=== PATIENT | male | born 1960 | race American Indian/Alaskan Native ===

== ENCOUNTER 2018-11-19 22:59 | Emergency (ER) | payer MEDICARE ==
[2018-11-20 00:25] LABS: Basophils # (Auto) 0.1 K/mm3 (0.0-0.1); Basophils % (Auto) 0.9 % (0.0-1.8); Eosinophils # (Auto) 0.1 K/mm3 (0.0-0.4); Eosinophils % (Auto) 1.5 % (0.0-4.3); Hematocrit 34.8 % (35.5-45.6); Hemoglobin 11.6 gm/dl (11.8-15.2); Lymphocytes # (Auto) 1.4 K/mm3 (1.2-5.4); Lymphocytes % (Auto) 23.2 % (13.4-35.0); Mean Corpuscular HGB Conc 33 % (32-34); Mean Corpuscular Volume 79 fl (84-94); Monocytes # (Auto) 0.5 K/mm3 (0.0-0.8); Monocytes % (Auto) 8.9 % (0.0-7.3); Platelet Count 219 K/mm3 (140-440); Red Blood Count 4.41 M/mm3 (3.65-5.03); Red Cell Distribution Width 15.9 % (13.2-15.2)
[2018-11-20 00:50] LABS: Alanine Aminotransferase 14 units/L (7-56); Albumin 3.8 g/dL (3.9-5); BUN/Creatinine Ratio 7; Blood Urea Nitrogen 10 mg/dL (9-20); Calcium 9.3 mg/dL (8.4-10.2); Hemolysis Index 4
[2018-11-20 01:03] LABS: Bilirubin,Urine NEG (Negative); Blood,Urine NEG (Negative); Color,Urine Amber (Yellow); Hyaline Casts,Urine 2 /LPF; Mucus,Urine 2+ /HPF
[2018-11-20 01:07] LABS: Protein,Urine >500 mg/dL (Negative)
[2018-11-20] MEDS ORDERED: ZOFRAN IV ONE (04:11)
[2018-11-20] MEDS ORDERED: NACL 0.9% 1000 ML 2,000 ML IV ONE (04:11)
[2018-11-20] MEDS ORDERED: MORPHINE IV ONE (04:11)
[2018-11-20] MEDS ORDERED: K-DUR PO ONE (04:11)
--- NOTE | 2018-11-20 04:12 | Emergency Department Report ---
ED General Adult HPI - General Chief complaint: Abdominal Pain Stated complaint: ABD PAIN Time Seen by Provider: 11/20/18 03:18 Source: patient, EMS (ems notes not available at time of chart dictation), RN notes reviewed Mode of arrival: Ambulatory Limitations: No Limitations - History of Present Illness Initial comments: This is a 58-year-old gentleman. The patient is not known to this provider previously. He reports a history of hypertension, diabetes, HIV, and asthma. He reportedly moved here from [place] recently. He presents to the ER today with a complaint of abdominal pain. The abdominal pain is present for one week. The abdominal pain is epigastric and radiates to the suprapubic region. It worsens when he eats and/or drinks. He also indicates that he intermittently gets nausea and vomiting when he eats or drinks. He denies headache, neck pain, chest pain and shortness of breath. He denies urinary symptoms. He denies testicular pain. He indicates no change in symptoms when he takes a hot bath or hot shower. The patient does not know all the medicines that he takes. He states his only surgical history is for hernia. It is documented that he had a gastric bypass. However, he does not tell me this. -: days(s) Location: abdomen Radiation: abdomen Quality: aching Consistency: intermittent Improves with: other Worsens with: other - Related Data Home Medications Medication Instructions Recorded Confirmed Last Taken Carvedilol Phosphate [Carvedilol 20 mg PO DAILY 11/20/18 11/20/18 Unknown ER] Entresto 24 - 26 mg DAILY 11/20/18 Unknown HumaLOG Mix 75-25 Kwikpen BID 11/20/18 Unknown hydrALAZINE [Apresoline TAB] Q3D 11/20/18 Unknown Previous Rx's Medication Instructions Recorded Last Taken Type Acetaminophen [Non-Aspirin Extra 500 mg PO Q6HR PRN #30 tablet 11/20/18 Unknown Rx Strength] Famotidine [Pepcid] 20 mg PO BID #60 tablet 11/20/18 Unknown Rx Metoclopramide [Reglan] 10 mg PO QID PRN #30 tablet 11/20/18 Unknown Rx Potassium Chloride [K-Dur] 20 meq PO BID #20 tab 11/20/18 Unknown Rx Promethazine [Phenergan SUPPOS] 50 mg TX Q6H PRN #15 supp.rect 11/20/18 Unknown Rx Allergies Allergy/AdvReac Type Severity Reaction Status Date / Time Penicillins Allergy Hives Verified 11/19/18 23:35 ED Review of Systems ROS: Stated complaint: ABD PAIN Other details as noted in HPI Constitutional: denies: fever Eyes: denies: eye discharge ENT: denies: epistaxis Respiratory: denies: cough Cardiovascular: denies: chest pain Gastrointestinal: abdominal pain, nausea, vomiting Genitourinary: denies: dysuria, testicular pain Musculoskeletal: denies: back pain Skin: denies: lesions Neurological: weakness Hematological/Lymphatic: denies: easy bleeding ED Past Medical Hx - Past Medical History Previous Medical History?: Yes Hx Congestive Heart Failure: Yes Hx Diabetes: Yes Hx Renal Disease: Yes Hx Asthma: Yes Hx HIV: Yes Additional medical history: Sciatica - Surgical History Hx Open Heart Surgery: Yes Additional Surgical History: Defribillator, Hernia, Gastric Bypass, Back - Social History Smoking Status: Former Smoker - Medications Home Medications: Home Medications Medication Instructions Recorded Confirmed Last Taken Type Acetaminophen [Non-Aspirin Extra 500 mg PO Q6HR PRN #30 tablet 11/20/18 Unknown Rx Strength] Carvedilol Phosphate [Carvedilol 20 mg PO DAILY 11/20/18 11/20/18 Unknown History ER] Entresto 24 - 26 mg DAILY 11/20/18 Unknown History Famotidine [Pepcid] 20 mg PO BID #60 tablet 11/20/18 Unknown Rx HumaLOG Mix 75-25 Kwikpen BID 11/20/18 Unknown History Metoclopramide [Reglan] 10 mg PO QID PRN #30 tablet 11/20/18 Unknown Rx Potassium Chloride [K-Dur] 20 meq PO BID #20 tab 11/20/18 Unknown Rx Promethazine [Phenergan SUPPOS] 50 mg TX Q6H PRN #15 supp.rect 11/20/18 Unknown Rx hydrALAZINE [Apresoline TAB] Q3D 11/20/18 Unknown History ED Physical Exam - General Limitations: No Limitations General appearance: alert, in no apparent distress - Head Head exam: Present: atraumatic, normocephalic - Eye Eye exam: Present: normal appearance, EOMI. Absent: nystagmus - ENT ENT exam: Present: normal exam, normal orophraynx, mucous membranes moist, normal external ear exam - Neck Neck exam: Present: normal inspection, full ROM. Absent: tenderness, meningismus - Respiratory Respiratory exam: Present: normal lung sounds bilaterally. Absent: respiratory distress - Cardiovascular Cardiovascular Exam: Present: regular rate, normal rhythm, normal heart sounds. Absent: bradycardia, tachycardia, irregular rhythm, systolic murmur, diastolic murmur, rubs, gallop - GI/Abdominal GI/Abdominal exam: Present: soft. Absent: distended, tenderness, guarding, rebound, rigid, pulsatile mass - Rectal Rectal exam: Present: deferred - exam: Present: normal inspection. Absent: testicular tenderness External exam: Present: normal external exam (there is no testicular tenderness. There is normal testicular lie bilaterally. There is normal cremasteric reflex bilaterally.), other (chaperoned by nurse Abner Jennings) - Extremities Exam Extremities exam: Present: normal inspection, full ROM, other (2+ pulses noted in the bilateral upper, lower extremities. Compartments soft. No long bony tenderness. The pelvis is stable.). Absent: pedal edema, joint swelling, calf tenderness - Back Exam Back exam: Present: normal inspection, full ROM. Absent: tenderness, CVA tenderness (R), CVA tenderness (L), paraspinal tenderness, vertebral tenderness - Neurological Exam Neurological exam: Present: alert, oriented X3, normal gait, other (Extraocular movements intact. Tongue midline. No facial droop. Facial sensation intact to light touch in the V1, V2, V3 distribution bilaterally. 5 and 5 strength in 4 extremities.. Sensation is intact to light touch in 4 extremities.). Absent: motor sensory deficit - Psychiatric Psychiatric exam: Present: normal affect, normal mood - Skin Skin exam: Present: warm, dry, intact, normal color. Absent: rash ED Course Vital Signs 11/19/18 11/20/18 11/20/18 23:31 03:19 03:22 Temperature 98 F 97.6 F Pulse Rate 86 67 Respiratory 20 19 14 Rate Blood Pressure 131/84 Blood Pressure 154/79 [Left] O2 Sat by Pulse 98 96 99 Oximetry 11/20/18 11/20/18 04:58 06:32 Temperature Pulse Rate 66 61 Respiratory 12 15 Rate Blood Pressure Blood Pressure 160/83 160/81 [Left] O2 Sat by Pulse 96 97 Oximetry - Reevaluation(s) Reevaluation #1: 11/20/18 05:10 Differential diagnosis, including not limited to: Colitis, diverticulitis, cystitis, cyclic vomiting syndrome, pancreatitis, gastroparesis Assessment and plan: 58-year-old gentleman, visiting from out of town, with complaints of one week intermittent abdominal pain, nausea, vomiting. Patient's abdomen is soft and benign, with no rebound, guarding or peritoneal signs. Laboratory studies reviewed and appreciated. No active vomiting in the ER, patient tolerating oral feeds. Found to be hypokalemic, potassium repletion ordered. CT scan of the abdomen and pelvis has been performed, and interpretation is pending at this time. 11/20/18 05:14 Reevaluation #2: 11/20/18 05:24 CT scan of the abdomen and pelvis negative for acute disease. No active vomiting. Patient will be discharged with instructions to follow up. ED Medical Decision Making - Lab Data Result diagrams: 11/20/18 00:15 11/20/18 00:15 Vital Signs 11/19/18 11/20/18 11/20/18 23:31 03:19 03:22 Temperature 98 F 97.6 F Pulse Rate 86 67 Respiratory 20 19 14 Rate Blood Pressure 131/84 Blood Pressure 154/79 [Left] O2 Sat by Pulse 98 96 99 Oximetry 11/20/18 04:58 Temperature Pulse Rate 66 Respiratory 12 Rate Blood Pressure Blood Pressure 160/83 [Left] O2 Sat by Pulse 96 Oximetry Lab Results 11/20/18 11/20/18 11/20/18 Range/Units 00:15 00:15 00:26 WBC 5.9 (4.5-11.0) K/mm3 RBC 4.41 (3.65-5.03) M/mm3 Hgb 11.6 L (11.8-15.2) gm/dl Hct 34.8 L (35.5-45.6) % MCV 79 L (84-94) fl MCH 26 L (28-32) pg MCHC 33 (32-34) % RDW 15.9 H (13.2-15.2) % Plt Count 219 (140-440) K/mm3 Lymph % (Auto) 23.2 (13.4-35.0) % [place] % (Auto) 8.9 H (0.0-7.3) % Eos % (Auto) 1.5 (0.0-4.3) % Baso % (Auto) 0.9 (0.0-1.8) % Lymph # 1.4 (1.2-5.4) K/mm3 [place] # 0.5 (0.0-0.8) K/mm3 Eos # 0.1 (0.0-0.4) K/mm3 Baso # 0.1 (0.0-0.1) K/mm3 Seg Neutrophils % 65.5 (40.0-70.0) % Seg Neutrophils # 3.9 (1.8-7.7) K/mm3 Sodium 150 H (137-145) mmol/L Potassium 3.1 L (3.6-5.0) mmol/L Chloride 110.7 H (98-107) mmol/L Carbon Dioxide 25 (22-30) mmol/L Anion Gap 17 mmol/L BUN 10 (9-20) mg/dL Creatinine 1.4 (0.8-1.5) mg/dL Estimated GFR > 60 ml/min BUN/Creatinine Ratio 7 % Glucose 103 H (75-100) mg/dL Calcium 9.3 (8.4-10.2) mg/dL Total Bilirubin 0.20 (0.1-1.2) mg/dL AST 20 (5-40) units/L ALT 14 (7-56) units/L Alkaline Phosphatase 59 (35-129) units/L Total Protein 7.5 (6.3-8.2) g/dL Albumin 3.8 L (3.9-5) g/dL Albumin/Globulin Ratio 1.0 % Lipase 80 H (13-60) units/L Urine Color [place] (Yellow) Urine Turbidity Clear (Clear) Urine pH 5.0 (5.0-7.0) Ur Specific [place] 1.027 (1.003-1.030) Urine Protein >500 (Negative) mg/dL Urine Glucose (UA) Neg (Negative) mg/dL Urine Ketones Tr (Negative) mg/dL Urine Blood Neg (Negative) Urine Nitrite Neg (Negative) Urine Bilirubin Neg (Negative) Urine Urobilinogen 2.0 (<2.0) mg/dL Ur Leukocyte Esterase Neg (Negative) Urine WBC (Auto) 2.0 (0.0-6.0) /HPF Urine RBC (Auto) 3.0 (0.0-6.0) /HPF U Epithel Cells (Auto) 3.0 (0-13.0) /HPF Hyaline Casts 2 /LPF Urine Mucus 2+ /HPF - EKG Data -: EKG Interpreted by Me EKG shows normal: sinus rhythm Rate: normal - EKG Data When compared to previous EKG there are: previous EKG unavailable 11/20/18 05:13 There is no prior EKG available for comparison. This is a sinus rhythm, with a left axis deviation, QTC prolonged, premature atrial contractions, a chill enlargement, borderline left anterior fascicular block, the EKG is abnormal, there is no prior for comparison, the EKG is not consistent with ST elevation myocardial infarction. - Radiology Data Radiology results: pending, report reviewed, image reviewed CT scan of the abdomen and pelvis negative for acute disease. Postsurgical changes noted. Multiple chronic findings noted. Critical care attestation.: If time is entered above; I have spent that time in minutes in the direct care of this critically ill patient, excluding procedure time. ED Disposition Clinical Impression: Abdominal pain, Hypokalemia Disposition: - TO HOME OR SELFCARE Is pt being admited?: No Does the pt Need Aspirin: No Condition: Good Additional Instructions: Avoid consumption of Motrin, ibuprofen, Naprosyn, Aleve. Avoid consumption of heavy, spicy foods. If patient takes metformin medication for diabetes, patient should not take this medication for the next 48 hours. Take the pain medication, nausea medication as needed/directed, use Reglan medication as needed for nausea, vomiting, and Phenergan suppository for nausea, vomiting not relieved by Reglan medication. Take the potassium supple irritation as directed, follow up with the primary care doctor or cellars supervisor within the next 2-3 weeks. Return to the emergency room right away with new, worsening or different symptoms, or symptoms not present on the initial emergency room evaluation. Prescriptions: Potassium Chloride [K-Dur] 20 meq PO BID #20 tab Acetaminophen [Non-Aspirin Extra Strength] 500 mg PO Q6HR PRN #30 tablet PRN Reason: Pain , Severe (7-10) Famotidine [Pepcid] 20 mg PO BID #60 tablet Promethazine [Phenergan SUPPOS] 50 mg TX Q6H PRN #15 supp.rect PRN Reason: Nausea Metoclopramide [Reglan] 10 mg PO QID PRN #30 tablet PRN Reason: Nausea Referrals: LYNDA BUSTILLOS MD [Primary Care Provider] - 3-5 Days [facility] [Provider Group] - 3-5 Days [facility] [Provider Group] - 3-5 Days
[2018-11-20] MEDS ORDERED: KCL 10MEQ/100ML 10 MEQ/100 ML BAG IV SCH (05:00)
--- NOTE | 2018-11-20 05:07 | Cat Scan Report ---
CT abdomen pelvis w con INDICATION / CLINICAL INFORMATION: Lower abdominal pain with nausea and vomiting. TECHNIQUE: The patient received 100 cc Omnipaque [address] scans at this location are performed using CT dose reduction for ALARA by means of automated exposure control. COMPARISON: None available. 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 There are bilateral simple renal cysts. There is a mildly complicated cyst in the upper pole the r ight kidney with thin calcification peripherally and in a single thin septation. This is a Bosniak 2 lesion. There are atherosclerotic calcifications involving aorta and its branches without aneurysm. The liver, spleen, gallbladder, bile ducts, pancreas, adrenal glands and bowel demonstrate no signifi cant abnormality. No adenopathy is seen. The lung bases are clear. PELVIS: The prostate gland is moderately enlarged. The distal ureters and urinary bladder are normal. A normal retrocecal appendix is present and there is no evidence of diverticulitis. No abnormal mass or fluid collection is seen. I do not identify a hernia. There are surgical and degenerative changes at L3-4. IMPRESSION: No acute intra-abdominal disease is identified. Signer Name: Abner Phan MD Signed: 11/20/2018 5:03 AM Workstation Name: [id number]
[2018-11-20] MEDS ORDERED: KCL 10MEQ/100ML 10 MEQ/100 ML BAG IV ONE (05:37)
[2018-11-20 06:33] VITALS: BP 160/81
== END 2018-11-20 06:40 | disposition home or self-care (01) ==
LOC: ED 22:59
DX: E87.6 Hypokalemia (principal); R10.13 Epigastric pain; I11.0 Hypertensive heart disease with heart failure; I50.9 Heart failure, unspecified; E11.9 Type 2 diabetes mellitus without complications; J45.909 Unspecified asthma, uncomplicated; Z21 Asymptomatic human immunodeficiency virus [HIV] infection status; Z88.0 Allergy status to penicillin; Z98.84 Bariatric surgery status; Z79.899 Other long term (current) drug therapy; Z87.442 Personal history of urinary calculi; Z98.890 Other specified postprocedural states
CPT/HCPCS: 36415; 74177; 80053; 81001; 82550; 83690; 83735; 85025; 93005; 93010; 96365; 96375; 99285; J2270; J2405; J3480; J7030; Q9967